=== PATIENT | female | born 1985 | race Caucasian/White ===

== ENCOUNTER 2016-11-18 02:26 | Inpatient (IN) | payer OTHER ==
[~2016-11-18] VITALS: Ht 170.2 cm; Wt 90.0 kg
[2016-11-18] MEDS ORDERED: D5%-LACTATED RINGERS 1,000 ML IV SCH (02:41)
[2016-11-18] MEDS ORDERED: LACTATED RINGERS 1,000 ML IV SCH (02:41)
[2016-11-18] MEDS ORDERED: OXYTOCIN 30U/ 0.9% NaCL 500ML 500 ML IV ONE (02:41)
[2016-11-18] MEDS ORDERED: OXYTOCIN 30U/ 0.9% NaCL 500ML 500 ML ONE (02:48)
[2016-11-18] MEDS ORDERED: ALUMINUM/MAG/SIMETHICONE 30 ML UDC PO PRN (03:00)
[2016-11-18] MEDS ORDERED: ONDANSETRON 2MG/ML, 2ML IVPush PRN (03:00)
[2016-11-18] MEDS ORDERED: TERBUTALINE 1 MG/ML, 1ML SQ PRN (03:00)
[2016-11-18] MEDS ORDERED: TERBUTALINE 1 MG/ML, 1ML IVPush PRN ×2 (03:00)
[2016-11-18] MEDS ORDERED: FENTANYL PF 100 MCG/2ML IV PRN (03:00)
[2016-11-18] MEDS ORDERED: SODIUM CITRATE/CITRIC ACID 30 ML UDC PO PRN (03:00)
[2016-11-18] MEDS ORDERED: SODIUM CHLORIDE FLUSH 10ML SYR IVF PRN (03:00)
[2016-11-18] MEDS ORDERED: METOCLOPRAMIDE 5 MG/ML, 2ML IVPush PRN (03:00)
[2016-11-18] MEDS ORDERED: FENTANYL PF 100 MCG/2ML IVPush PRN (03:00)
[2016-11-18 03:11] LABS: HEMATOCRIT 43.2 % (34.6-47.8); HEMOGLOBIN 14.4 g/dL (11.7-16.4); WHITE BLOOD COUNT 13.2 x10^3/uL (3.4-10)
[2016-11-18] MEDS ORDERED: OXYcodone/APAP 5/325MG TABLET ONE (03:12)
[2016-11-18] MEDS ORDERED: IBUPROFEN 600 MG TABLET ONE (03:12)
[2016-11-18 03:16] LABS: ASPARTATE AMINO TRANSFERASE 27 U/L (15-37); BLOOD UREA NITROGEN 9 mg/dL (7-18)
[2016-11-18] MEDS: IBUPROFEN 600 MG TABLET PO PRN ×3 (03:30→16:41)
[2016-11-18] MEDS: OXYcodone/APAP 5/325MG TABLET PO PRN ×2 (03:30→08:10)
[2016-11-18] MEDS ORDERED: PLEASE ENTER HEIGHT AND WEIGHT MC SCH (03:30)
[2016-11-18] MEDS ORDERED: PLEASE ENTER ALLERGIES MC SCH ×2 (03:30)
[2016-11-18] MEDS: OXYTOCIN 30U/ 0.9% NaCL 500ML 500 ML IV SCH ×3 (03:55→23:55)
[2016-11-18] MEDS ORDERED: BISACODYL 10 MG SUPP PR PRN (04:00)
[2016-11-18] MEDS ORDERED: ACETAMINOPHEN 325 MG TABLET PO PRN (04:00)
[2016-11-18] MEDS ORDERED: OXYcodone/APAP 5/325MG TABLET PO PRN (04:00)
[2016-11-18] MEDS ORDERED: MISOPROSTOL 200 MCG TABLET PR PRN (04:00)
[2016-11-18 05:30] VITALS: BP 149/90
[2016-11-18 06:45] VITALS: BP 145/83
[2016-11-18] MEDS: PRENATAL VIT/IRON/FA 1 EACH TABLET PO SCH (08:10)
[2016-11-18] MEDS: DOCUSATE 100 MG CAPSULE PO PRN (08:10)
[2016-11-18 11:54] LABS: HEMATOCRIT 35.5 % (34.6-47.8); WHITE BLOOD COUNT 11.8 x10^3/uL (3.4-10)
[2016-11-18 12:20] VITALS: BP 145/98
[2016-11-18 16:20] VITALS: BP 154/97
[2016-11-18 20:15] VITALS: BP 112/72
[2016-11-19 00:15] VITALS: BP 134/90
[2016-11-19] MEDS: DOCUSATE 100 MG CAPSULE PO PRN ×2 (00:28→09:59)
[2016-11-19] MEDS: IBUPROFEN 600 MG TABLET PO PRN ×2 (00:28→07:05)
[2016-11-19] MEDS ORDERED: IBUP-1222 PO (03:09)
[2016-11-19] MEDS ORDERED: OXYC-302 PO (03:11)
[2016-11-19] MEDS ORDERED: DOCU-131 PO (03:12)
[2016-11-19 08:15] VITALS: BP 140/97
[2016-11-19] MEDS: OXYTOCIN 30U/ 0.9% NaCL 500ML 500 ML IV SCH (09:55)
[2016-11-19] MEDS: PRENATAL VIT/IRON/FA 1 EACH TABLET PO SCH (09:59)
[2016-11-25] MEDS ORDERED: LABE200T3 PO (09:45)
== END 2016-11-19 15:00 | disposition home or self-care (01) | DRG 775 ==
LOC: LDOP 02:26 → LDIP 02:47 → 2NW 05:15
PROVIDERS: ADMIT Student in an Organized Health Care Education/Training Program; ATTEND Student in an Organized Health Care Education/Training Program
PROC: 10E0XZZ Delivery of Products of Conception, External Approach (ICD-10-PCS; principal; 2016-11-18)
DX: O24.420 Gestational diabetes mellitus in childbirth, diet controlled (principal); R03.0 Elevated blood-pressure reading, without diagnosis of hypertension; O99.89 Other specified diseases and conditions complicating pregnancy, childbirth and the puerperium; O69.81X0 Labor and delivery complicated by cord around neck, without compression, not applicable or unspecified; Z37.0 Single live birth; Z3A.39 39 weeks gestation of pregnancy; Z90.49 Acquired absence of other specified parts of digestive tract; Z88.6 Allergy status to analgesic agent
CPT/HCPCS: 36415; 80053; 82248; 84550; 85025; 86850; 86900; J2590; J7120